=== PATIENT | male | born 1965 | race Caucasian/White ===

== ENCOUNTER → 2019-09-30 | Outpatient (CLI) | payer BC ==
[~2019-09-30] MED LIST: HEPARIN PF 500 UNIT/5 ML DISP.SYRIN. IVP ONE
--- NOTE | 2019-09-30 14:36 | RAD ---
EXAM: MUGA SCAN. HISTORY: Hypertension, cardiovascular disease, assess ejection fraction. COMPARISON: None. FINDINGS: Gated cardiac scintigraphic images were obtained after the intravenous administration of 18.6 mCi technetium 99m UltraTag red blood cells. The left ventricular ejection fraction is calculated at 32.7%. IMPRESSION: 1. Left ventricular ejection fraction 32.7%. Electronically signed by: Desi Linton MD (09/30/2019 2:33 PM) [place] [id number]
== END | disposition home or self-care (01) ==
LOC: NM 08:55
PROVIDERS: ATTEND Internal Medicine Cardiovascular Disease
DX: I42.8 Other cardiomyopathies (principal)
CPT/HCPCS: 78472; A9560

== ENCOUNTER → 2021-07-09 | Outpatient (CLI) | payer MEDICARE ==
--- NOTE | 2021-07-09 11:30 | CARD ---
MR#: [id number] Date of Study: 07/09/2021 Ordering Physician: TRAE PATRICK, Referring Physician: TRAE PATRICK, Tech: Nii Aguilar [facility] APPROVED REPORT EXAM: Two-dimensional and M-mode echocardiogram with Doppler and color Doppler. Other Information Quality : GoodHR: 77bpm Rhythm : NSR INDICATION Hypertension/HCVD Surgery/Intervention S/P Mitral valve repair RISK FACTORS Hypertension 2D DIMENSIONS Left Atrium(2D)3.2 (1.6-4.0cm)IVSd1.2 (0.7-1.1cm) Aortic Root(2D)3.8 (2.0-3.7cm)LVDd5.2 (3.9-5.9cm) LVOT Diameter2.2 (1.8-2.4cm)PWd1.2 (0.7-1.1cm) LVDs4.1 (2.5-4.0cm)FS (%) 20.2 % SV52.3 mlLVEF(%)41.1 (>50%) Aortic Valve AoV Peak Ruben.112.9cm/sAoV VTI21.0cm AO Peak GR.5.1mmHgLVOT Peak Ruben.69.7cm/s LVOT VTI 15.05cmAO Mean GR.3mmHg JOSIAH (VMAX)2.51pw9FBS (VTI)2.85cm2 Mitral Valve MV E Qnfiizah11.5cm/sMV E Peak Gr.7mmHg MV DECEL [id number] A Wtedcmsy888.8cm/s MV E Mean Gr.3mmHgE/A Ratio0.8 Pulmonary Valve PV Peak Omxhegmb382.1cm/sPV Peak Grad.5mmHg Tricuspid Valve TR P. Fmovocme152ed/sTR Peak Gr.20mmHg Pulmonary Vein S1 Jultjqze64.9cm/sD2 Dqqqpdic18.6cm/s LEFT VENTRICLE The left ventricle is normal size. There is borderline to mild concentric left ventricular hypertroph y. The left ventricular systolic function is mild to moderately impaired. The Ejection Fraction is es timated at 40% Transmitral Doppler flow pattern is Grade I-abnormal relaxation pattern. No left ventr icle thrombus noted on this study. There is no ventricular septal defect visualized. There is no left ventricular aneurysm. There is no mass noted in the left ventricle. RIGHT VENTRICLE The right ventricle is normal size. There is normal right ventricular wall thickness. The right ventr icular systolic function is normal. ATRIA The left atrium is mildly dilated. The right atrium size is normal. The interatrial septum is intact with no evidence for an atrial septal defect or patent foramen ovale as noted on 2-D or Doppler imagi ng. AORTIC VALVE The aortic valve is mildly sclerotic. Doppler and Color Flow revealed no significant aortic regurgita tion. There is no significant aortic valvular stenosis. There is no aortic valvular vegetation. MITRAL VALVE The mitral valve is thickened but opens well. Mitral valve motion is consistent with mitral valve rep air. There is no evidence of mitral valve prolapse. There is no mitral valve stenosis. Doppler and Co sergo-flow revealed trace mitral regurgitation. S/P Mitral valve repair. TRICUSPID VALVE The tricuspid valve is normal in structure and function. Doppler and Color Flow revealed trace tricus pid regurgitation. There is no tricuspid valve prolapse or vegetation. There is no tricuspid valve st enosis. PULMONIC VALVE The pulmonary valve is normal in structure and function. Doppler and Color Flow revealed no pulmonic valvular regurgitation. There is no pulmonic valvular stenosis. GREAT VESSELS The aortic root is normal in size. The ascending aorta is normal in size. The pulmonary artery is nor mal. The IVC is normal in size and collapses >50% with inspiration. PERICARDIAL EFFUSION There is no pleural effusion. There is no evidence of significant pericardial effusion. Critical Notification Critical Value: No <Conclusion> The left ventricular systolic function is mild to moderately impaired. The Ejection Fraction is estimated at 40% Transmitral Doppler flow pattern is Grade I-abnormal relaxation pattern. Trace mitral regurgitation. Trace tricuspid regurgitation. There is no evidence of significant pericardial effusion. Signed by : Alpesh Quiñonez, Electronically Approved : 07/09/2021 11:29:45
== END ==
LOC: ECHO 08:50
PROVIDERS: ATTEND Internal Medicine Cardiovascular Disease
DX: I35.1 Nonrheumatic aortic (valve) insufficiency (principal); I51.7 Cardiomegaly; I42.8 Other cardiomyopathies
CPT/HCPCS: 93306